=== PATIENT | male | born 1985 | race Caucasian/White ===

== ENCOUNTER 2020-08-09 23:44 | Emergency (ER) | payer OTHER ==
[~2020-08-09] VITALS: Ht 182.9 cm; Wt 95.3 kg
[2020-08-10] MEDS ORDERED: HYDROCODON-ACE1 EAC8 PO (00:59)
[2020-08-10 01:09] VITALS: BP 137/98
== END 2020-08-10 01:10 | disposition home or self-care (01) ==
LOC: M.ERS 23:44
DX: S89.82XA Other specified injuries of left lower leg, initial encounter (principal); Z88.0 Allergy status to penicillin; W01.0XXA Fall on same level from slipping, tripping and stumbling without subsequent striking against object, initial encounter; Y93.89 Activity, other specified; Y92.89 Other specified places as the place of occurrence of the external cause; Y99.8 Other external cause status